=== PATIENT | male | born 1975 | race Caucasian/White ===

== ENCOUNTER 2019-02-25 05:55 | Day surgery (SDC) | payer OTHER ==
[2019-02-25 06:14] LABS: BASOPHILS 0.4 % (0-2); HEMATOCRIT 41.7 % (42.0-54.0); HEMOGLOBIN 14.4 g/dL (13.5-17.5); LYMPHOCYTES 32.9 % (15-50); MCH 28.8 pg (26.0-34.0); MCHC 34.5 g/dL (31.0-37.0); MCV 83.4 fL (80.0-100.0); MONOCYTES 12.9 % (2-11); NEUTROPHILS 50.8 % (40-80); PLATELET COUNT 136 10x3/uL (130-400); RDW 13.3 % (11.5-14.5)
[2019-02-25 06:35] LABS: CALC OSMOLALITY 280 mosm/kg (275-300); CALCIUM 9.1 mg/dL (8.5-10.1); CARBON DIOXIDE 29.3 mmol/L (21.0-32.0); CHLORIDE - SERUM 104 mmol/L (98-107); GLUCOSE 98 mg/dL (74-106); POTASSIUM - SERUM 3.8 mmol/L (3.5-5.1); SODIUM 139 mmol/L (136-145); UREA NITROGEN 20 mg/dL (7-18); eGFR NON AFRICAN AMERICAN 87 mL/min (90-120)
[2019-02-25 07:26] VITALS: BP 126/77; BMI 29.5
[2019-02-25] MEDS ORDERED: HYDROCODON-ACE1 EA10 PO (08:47)
--- NOTE | 2019-02-25 09:09 | NUR ---
ASSESSED PT FOR PAIN - "I DON'T FEEL NOTHIN"
--- NOTE | 2019-03-18 10:09 | OP ---
PATIENT NAME: LYNETTE ESPOSITO MEDICAL RECORD: [id number] :77 LOCATION:[facility] ADMISSION DATE: SURGEON: ELISEO PENN MD DATE OF OPERATION: 02/25/2019 PREOPERATIVE DIAGNOSIS: Anal skin tags. POSTOPERATIVE DIAGNOSIS: Anal skin tags. PROCEDURE: Excision of anal skin tag. SURGEON: Eliseo Penn MD REPORT OF PROCEDURE: The patient was placed in lithotomy position and the perianal region was prepped and draped in sterile fashion. The patient had 2 conglomerates of anal skin tags, one anterior and 1 posterior. The posterior anal skin tags were approached first. There were actually 3 skin tags that were all coming down in the same general area. I went ahead and grasped these and using electrocautery, removed a core of tissue including these anal skin tags all the way down into the anoderm. Care was taken not to go deep into the muscular tissues. The tissues were all preserved. Once this tag was removed, it was sent off for permanent specimen. The underlying tissue was inspected and any bleeding that was found was treated with electrocautery. We then approached the anterior anal skin tag. This was smaller in size and there was only 1 present in this region. An ovoid incision was made around the base of this anal skin tag again down towards the muscular tissue, but care was taken to preserve the sphincteric musculature. The underlying tissue was inspected and any bleeding was treated with electrocautery. At this point, I irrigated out the wounds and assured there was no sign of any bleeding. Using 2-0 chromic, I was able to close the skin incisions longitudinally out from the anal region in a locking fashion. We then inspected the internal aspect of the anus and could not see any evidence of any internal hemorrhoids. There was a small degree of external hemorrhoids on the right lateral aspect of the anus, but this was left alone. At the conclusion of the case, a piece of Gelfoam dipped in [place] was placed into the anus. COMPLICATIONS: None. CONDITION: Stable. ANESTHESIA: General endotracheal. BLOOD LOSS: 30 mL. TRANSINT:[id number] Voice Confirmation ID: [id number] DOCUMENT ID: [id number] ELISEO PENN MD at 1009 CC: STEFANI ERICKSON [id number] DICTATION DATE: 02/25/1901 ANATOMY AND PHYSIOLOGY INSTRUCTOR: 02/25/19 1049 [facility] 02/25/19 [facility] [address] [place] [address]
== END 2019-02-25 12:30 | disposition home or self-care (01) ==
LOC: D.OPS 05:55
PROVIDERS: ATTEND Surgery
DX: K64.4 Residual hemorrhoidal skin tags (principal); Z01.812 Encounter for preprocedural laboratory examination